=== PATIENT | female | born 1940 | race Caucasian/White ===

== ENCOUNTER → 2016-04-30 | Outpatient (REF) | payer MEDICARE ==
[2016-04-30 14:22] LABS: FERRITIN 139 NG/ML (8-252); PERCENT SATURATION 22.1 % (13.2-37.4); TOTAL IRON BINDING CAPACITY 353 UG/DL (250-450)
[2016-04-30 14:27] LABS: FOLATE > 24.0 NG/ML; VITAMIN B12 LEVEL 613 PG/ML
== END ==
LOC: M LAB REF 12:45
PROVIDERS: ATTEND Family Medicine
DX: D64.9 Anemia, unspecified (principal)

== ENCOUNTER → 2017-01-13 | Outpatient (REF) | payer OTHER, MEDICARE ==
[2017-01-13 13:52] LABS: RETIC HEMOGLOBIN EQUIVALENT 38.3 pg (24-36); RETICULOCYTE % 1.9 % (0.5-1.5)
[2017-01-13 13:53] LABS: FOLATE 20.7 NG/ML
== END ==
LOC: M LAB REF 13:20
PROVIDERS: ATTEND Family Medicine
DX: D64.9 Anemia, unspecified (principal)

== ENCOUNTER → 2017-01-14 | Outpatient (REF) | payer OTHER, MEDICARE ==
[2017-01-14 12:13] LABS: REASON FOR REVIEW COMPREHENSIVE REVIEW
== END ==
LOC: M LAB REF 11:45
PROVIDERS: ATTEND Family Medicine
DX: M79.651 Pain in right thigh (principal); D64.9 Anemia, unspecified

== ENCOUNTER → 2017-05-27 | Outpatient (REF) | payer OTHER, MEDICARE ==
[2017-05-27 19:38] LABS: RETIC HEMOGLOBIN EQUIVALENT 34.3 pg (24-36); RETICULOCYTE # 60.1 10^9/L (17-77); RETICULOCYTE % 1.9 % (0.5-1.5)
[2017-05-27 20:10] LABS: FERRITIN 44 NG/ML (8-252); IRON (FE) 68 UG/DL (50-170); PERCENT SATURATION 18.1 % (13.2-45.0); TOTAL IRON BINDING CAPACITY 376 UG/DL (250-450)
== END ==
LOC: M LAB REF 17:32
DX: D64.9 Anemia, unspecified (principal)
CPT/HCPCS: 83550

== ENCOUNTER 2018-01-14 08:55 | Day surgery (SDC) | payer OTHER ==
[2018-01-14] MEDS: NS 1,000 ML IV (09:42)
[2018-01-14] MEDS ORDERED: LIDOCAINE 2% INJ 100 MG/5 ML SDV (FOR ANES.) As Ordered (10:28)
[2018-01-14] MEDS ORDERED: fentaNYL 100 MCG/2 ML INJECTION (J3010) As Ordered (10:28)
[2018-01-14] MEDS ORDERED: PROPOFOL 200 MG/20 ML VIAL As Ordered ×2 (10:28→10:30)
[2018-01-14 12:43] LABS: HEMATOCRIT 23.2 % (36.0-47.0); HEMOGLOBIN 7.6 g/dl (12.0-15.5); MEAN CORPUSCULAR HGB CONC 32.8 g/dl (32.0-36.5); MEAN CORPUSCULAR VOLUME 94.7 fl (80.0-96.0); PLATELET COUNT, AUTOMATED 226 10^3/uL (150-450); RED BLOOD COUNT 2.45 10^6/uL (4.00-5.40); RED CELL DISTRIBUTION WIDTH 12.5 % (11.5-14.5); WHITE BLOOD COUNT 4.8 10^3/uL (4.0-10.0)
[2018-01-14 12:56] LABS: ALBUMIN 3.3 GM/DL (3.2-5.2); ALBUMIN/GLOBULIN RATIO 1.22 (1.00-1.93); ALKALINE PHOSPHATASE 57 U/L (45-117); ALT/SGPT 22 U/L (12-78); ANION GAP 8 MEQ/L (8-16); AST/SGOT 28 U/L (7-37); BILIRUBIN,TOTAL 0.3 MG/DL (0.2-1.0); BLOOD UREA NITROGEN 15 MG/DL (7-18); CALCIUM LEVEL 8.8 MG/DL (8.8-10.2); CARBON DIOXIDE LEVEL 27 MEQ/L (21-32); CHLORIDE LEVEL 109 MEQ/L (98-107); CREATININE FOR GFR 1.07 MG/DL (0.55-1.30); GLOMERULAR FILTRATION RATE 52.8 (>39); GLUCOSE, FASTING 108 MG/DL (70-100); SODIUM LEVEL 144 MEQ/L (136-145)
[2018-01-16 10:30] LABS: CARCINOEMBRYONIC ANTIGEN < 0.5 NG/ML (<2.5)
== END 2018-01-14 12:14 | disposition home or self-care (01) ==
LOC: M OPP 12:14
DX: D50.9 Iron deficiency anemia, unspecified (principal); C18.9 Malignant neoplasm of colon, unspecified; K56.690 Other partial intestinal obstruction; D49.0 Neoplasm of unspecified behavior of digestive system; K64.0 First degree hemorrhoids; K57.30 Diverticulosis of large intestine without perforation or abscess without bleeding; I10 Essential (primary) hypertension; E78.5 Hyperlipidemia, unspecified; R01.1 Cardiac murmur, unspecified; E03.9 Hypothyroidism, unspecified; K59.00 Constipation, unspecified; M54.89 Other dorsalgia; Z85.828 Personal history of other malignant neoplasm of skin; Z78.0 Asymptomatic menopausal state; Z79.899 Other long term (current) drug therapy
CPT/HCPCS: 45380

== ENCOUNTER → 2018-01-20 | Outpatient (REF) | payer OTHER ==
[2018-01-21 10:02] LABS: IMMEDIATE SPIN CROSSMATCH 1 2
== END ==
LOC: M LAB REF 12:11
DX: D64.9 Anemia, unspecified (principal)
CPT/HCPCS: 86900

== ENCOUNTER 2018-01-21 07:13 | Outpatient (CLI) | payer OTHER ==
[2018-01-21] MEDS: FUROSEMIDE 20 MG/2 ML VIAL (J1940) IV (09:58)
== END 2018-01-21 13:00 | disposition home or self-care (01) ==
LOC: M INFU 07:13
DX: C18.9 Malignant neoplasm of colon, unspecified (principal)
CPT/HCPCS: 36430

== ENCOUNTER → 2018-02-04 | Outpatient (CLI) | payer OTHER ==
[~2018-02-04] MED LIST: GASTROGRAFIN SOLUTION 30ML (Q9963) As Ordered; ISOVUE-370 76% 100ML VIAL (Q9967) As Ordered
== END ==
LOC: M RAD 15:04
DX: R91.1 Solitary pulmonary nodule (principal); C18.6 Malignant neoplasm of descending colon
CPT/HCPCS: Q9963

== ENCOUNTER → 2018-05-22 | Outpatient (REF) | payer OTHER ==
[~2018-05-22] MED LIST changes: +CALC500T49 PO; +CENTCHW3 PO; +CLEAPOW10 PO; +CYCL5TAB PO; +DRAM50TA7 PO; +FISH7.5C PO; -GASTROGRAFIN SOLUTION 30ML (Q9963) As Ordered; +GLUC1CAP10 PO; +IRON325T7 PO; -ISOVUE-370 76% 100ML VIAL (Q9967) As Ordered; +LEVO112T2 PO; +LOSA50TA88 PO; +OXYB5TAB10 PO; +SIMV20TA2 PO; +STOO100C PO; +VITA2000 PO; +drenamin PO; +fish oil PO; +multizyme PO
== END ==
LOC: M LAB REF 11:56
PROVIDERS: ATTEND Family Medicine
DX: N18.3 Chronic kidney disease, stage 3 (moderate) (principal); D64.9 Anemia, unspecified

== ENCOUNTER → 2018-05-26 | Outpatient (REF) | payer OTHER ==
[2018-05-26 13:29] LABS: IRON (FE) 80 UG/DL (50-170); PERCENT SATURATION 24.8 % (13.2-45.0); TOTAL IRON BINDING CAPACITY 323 UG/DL (250-450)
[2018-05-26 13:36] LABS: FOLATE > 24.0 NG/ML
[2018-05-26 14:55] LABS: VITAMIN B12 LEVEL 712 PG/ML
== END ==
LOC: M LAB REF 12:33
PROVIDERS: ATTEND Family Medicine
DX: D64.9 Anemia, unspecified (principal)

== ENCOUNTER → 2018-07-08 | Outpatient (CLI) | payer MEDICARE ==
--- NOTE | 2018-07-08 16:28 | REP ---
CT chest without contrast: History: Pulmonary nodule. Comparison chest CT study February 04, 2018. The patient gives a history of colon carcinoma. CT findings: There is a right lower lobe nodule on axial page 67 of 106 in series 201 of today's study. This measures 7 mm in greatest transverse dimension by 4 mm in short axis dimension on axial images. By my measurements on the prior study, this nodule measured 6.5 x 5.1 mm. It is not felt to have changed in the interval. There is a 3 mm nodule in the right upper lobe on page 22 of 106 of today's study which is visible in retrospect and unchanged from the prior study. No other significant pulmonary nodule is appreciated. There are scattered areas of minimal focal fibrosis. There is an area of fibrosis in the paravertebral region of the right lower lobe which is unchanged. Vascular calcification is noted. No adenopathy is seen. 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 No adrenal lesion is seen. Impression: No change in the size of the noncalcified nodule in the right lower lobe in the interval since the prior study February 04, 2018. No new pulmonary nodule is appreciated. 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 Electronically Signed by Kedar Miles MD 07/08/2018 04:31 P
== END ==
LOC: M RAD 14:20
PROVIDERS: ATTEND Surgery
DX: R91.1 Solitary pulmonary nodule (principal); J84.10 Pulmonary fibrosis, unspecified

== ENCOUNTER → 2018-12-30 | Outpatient (REF) | payer MEDICARE ==
[~2018-12-30] MED LIST changes: +FERR325T82 PO; -IRON325T7 PO; +MM S100C PO; -SIMV20TA2 PO; +SIMV20TA22 PO; -STOO100C PO
== END ==
LOC: M LAB REF 12:45
PROVIDERS: ATTEND Radiology Diagnostic Radiology
DX: R92.2 Inconclusive mammogram (principal)

== ENCOUNTER → 2019-01-06 | Outpatient (CLI) | payer MEDICARE ==
[~2019-01-06] MED LIST changes: +GASTROGRAFIN SOLUTION 30ML (Q9963) As Ordered ONE; +ISOVUE-370 76% 100ML VIAL (Q9967) As Ordered ONE; +SIMV20TA2 PO; -SIMV20TA22 PO
--- NOTE | 2019-01-07 05:01 | REP ---
Clinical: Anemia. Colon cancer. Technique: Axial contrast enhanced images from the thoracic inlet to the upper abdomen with coronal and sagittal re-formations using 100 ml Isovue 370 intravenous contrast material. Comparison: 07/08/2018, 02/04/2018. Findings: The 7 mm noncalcified pulmonary nodule in the periphery of the right lower lobe (image 58) and 2 mm noncalcified nodule in the periphery of the right upper lobe (image 21) both remain stable. No further nodule, consolidation or mass lesion is appreciated. Chronic-appearing interstitial changes and minimal posterior basilar dependent changes noted. No effusion. No pneumothorax. Tracheobronchial tree is patent. No adenopathy. Incidental aberrant right subclavian artery noted. Atherosclerotic changes to the thoracic aorta and coronary arteries are again identified. Surrounding musculoskeletal structures without focal osseous abnormality. Limited upper abdomen demonstrates normal bilateral adrenal glands. Impression: 1. Stable noncalcified pulmonary nodules unchanged compared through 02/04/2018. 2. No new acute mediastinal or pleuroparenchymal process. Electronically Signed by Valente Crawford MD 01/07/2019 04:53 A
--- NOTE | 2019-01-07 05:08 | REP ---
Clinical: Anemia. History: Cancer. Technique: Axial contrast enhanced images from the lung bases to the pubic symphysis using oral (per protocol) and 100 ml Isovue 370 intravenous contrast material with coronal and sagittal re-formations. Comparison: 02/04/2018. Findings: Lung bases demonstrate mild chronic interstitial changes along with minimal posterior basilar dependent changes and stable nodule in the periphery of the right lower lobe. Liver, spleen, pancreas, gallbladder, bilateral adrenal glands and kidneys are normal. The enteric system is without obstruction or acute inflammatory process. Postsurgical changes involving the descending colon noted. Few scattered sigmoid diverticula identified without acute diverticulitis. Mild/moderate fecal stasis suggested. Pelvis demonstrates normal bladder. The uterus demonstrates central hypodense area with calcification suggesting myomatous changes. No pelvic fluid or ascites. No significant adenopathy. Atherosclerotic changes to the aorta and vasculature without aneurysm or dissection. Musculoskeletal structures demonstrate age-related changes without focal osseous abnormality. Impression: 1. No obvious acute abdominopelvic pathology appreciated. 2. Mild/moderate fecal stasis and constipation suggested. 3. Few scattered sigmoid diverticula. 4. No ascites, adenopathy, or focal inflammatory changes. Electronically Signed by Valente Crawford MD 01/07/2019 04:59 A
== END ==
LOC: M RAD 15:12
PROVIDERS: ATTEND Surgery
DX: D64.9 Anemia, unspecified (principal); Z85.038 Personal history of other malignant neoplasm of large intestine; K57.30 Diverticulosis of large intestine without perforation or abscess without bleeding; I70.0 Atherosclerosis of aorta
CPT/HCPCS: 71260; 74177; Q9963; Q9967

== ENCOUNTER → 2019-08-16 | Outpatient (REF) | payer MEDICARE ==
[~2019-08-16] MED LIST changes: -GASTROGRAFIN SOLUTION 30ML (Q9963) As Ordered ONE; -ISOVUE-370 76% 100ML VIAL (Q9967) As Ordered ONE; -SIMV20TA2 PO; +SIMV20TA22 PO
[2019-08-16 17:36] LABS: PERCENT SATURATION 37.6 % (13.2-45.0)
== END ==
LOC: M LAB REF 16:14
PROVIDERS: ATTEND Family Medicine
DX: D64.9 Anemia, unspecified (principal); N18.3 Chronic kidney disease, stage 3 (moderate)

== ENCOUNTER → 2019-09-24 | Outpatient (REF) | payer MEDICARE ==
[2019-09-24 18:06] LABS: C REACTIVE PROTEIN QUANTITATIV < 0.30 MG/DL (0.00-0.30); LDH LACTATE DEHYDROGENASE 167 U/L (84-246); RHEUMATOID FACTOR QUANT < 10.0 IU/ML (<15.0)
[2019-09-24 18:16] LABS: CORTISOL AM 10.5 UG/DL (4.3-22.4)
[2019-09-24 18:17] LABS: TESTOSTERONE 15 NG/DL (14-76); VITAMIN B12 LEVEL 857 PG/ML
[2019-09-24 18:18] LABS: FOLATE > 24.0 NG/ML
[2019-09-28 08:08] LABS: ANTINUCLEAR ANTIBODIES DIRECT Negative (Negative); ERYTHROPOIETIN 15.3 mIU/mL (2.6-18.5); HAPTOGLOBIN 153 mg/dL (42-346)
== END ==
LOC: M LAB REF 17:34
PROVIDERS: ATTEND Family Medicine
DX: D64.9 Anemia, unspecified (principal); Z85.038 Personal history of other malignant neoplasm of large intestine

== ENCOUNTER → 2019-11-17 | Outpatient (CLI) | payer MEDICARE ==
[~2019-11-17] MED LIST changes: +GASTROGRAFIN SOLUTION 30ML (Q9963) As Ordered ONE; +ISOVUE-370 76% 100ML VIAL As Ordered ONE
== END ==
LOC: M RAD 16:30
PROVIDERS: ATTEND Internal Medicine Hematology & Oncology
DX: R91.8 Other nonspecific abnormal finding of lung field (principal); D64.9 Anemia, unspecified; Z85.038 Personal history of other malignant neoplasm of large intestine
CPT/HCPCS: 71260; 74177; Q9963; Q9967

== ENCOUNTER → 2020-06-05 | Outpatient (CLI) | payer MEDICARE ==
[~2020-06-05] MED LIST changes: -GASTROGRAFIN SOLUTION 30ML (Q9963) As Ordered ONE; -ISOVUE-370 76% 100ML VIAL As Ordered ONE
--- NOTE | 2020-06-05 13:25 | REP ---
INDICATION: SCIATICA. COMPARISON: None. TECHNIQUE: Five views lumbosacral spine. FINDINGS: There is no compression fracture or malalignment. There is no spondylolysis or spondylolisthesis. There is very mild diffuse spurring. There is mild disc space narrowing at all levels. There is sclerosis and spurring at the posterior facet joints of L4-5 and L5-S1. Posterior elements are intact. IMPRESSION: Mild diffuse degenerative changes. <Electronically signed by Roberto Whitmore > 06/05/20 [id number]
== END ==
LOC: M ADAMS 09:42
PROVIDERS: ATTEND Nurse Practitioner Family
DX: M25.78 Osteophyte, vertebrae (principal); M54.31 Sciatica, right side

== ENCOUNTER → 2020-08-09 | Outpatient (CLI) | payer MEDICARE ==
--- NOTE | 2020-08-09 09:46 | REP ---
INDICATION: PAIN. COMPARISON: None. TECHNIQUE: AP and frogleg views. FINDINGS: AP and frogleg views of the right hip demonstrate smooth rounded femoral head and intact hip joint space. Periarticular soft tissues are unremarkable. No fracture is seen. There is subcortical cyst formation in the superior acetabular margin and minimal spurring is present. The right hemipelvis appears intact. Visualized bowel gas pattern is normal. IMPRESSION: Minimal osteoarthritic spurring. No acute abnormality. <Electronically signed by Matt Miles > 08/09/20 0921
== END ==
LOC: M WUC 08:40
PROVIDERS: ATTEND Family Medicine
DX: M16.11 Unilateral primary osteoarthritis, right hip (principal)

== ENCOUNTER 2020-08-29 08:31 | Emergency (ER) | payer MEDICARE ==
[~2020-08-29] VITALS: Ht 167.6 cm; Wt 74.4 kg
[2020-08-29] MEDS ORDERED: ROPI0.253 (08:44)
[2020-08-29] MEDS ORDERED: LEVO100T5 (08:44)
[2020-08-29] MEDS ORDERED: SIMV20TA22 (08:44)
--- NOTE | 2020-08-29 09:18 | REP ---
INDICATION: fall, head injury. COMPARISON: Comparison brain MRI study images are from July 18, 2008.. TECHNIQUE: Helical scanning is acquired. 5 mm axial images were reformatted. Coronal MPR images were generated. FINDINGS: Bone window settings demonstrate an intact bony calvarium. There is no evidence of skull fracture or incidental bony calvarial lesion. The visualized paranasal sinuses appear clear. No intraorbital abnormality is seen. On soft tissue window setting images; the lateral, third, and fourth ventricles are normal in size and position. Whitmore-white differentiation pattern is normal above and below the tentorium. There are is no evidence of intracranial hemorrhage. No mass, edema, infarction, or midline shift is seen. No extra-axial fluid collection is appreciated. There is minimal vascular calcification at the skull base. There is a small stable subarachnoid cyst adjacent to the left cerebellar hemisphere posteriorly unchanged from the 2009 prior study. Minimal small vessel changes are visible. IMPRESSION: No acute intracranial abnormality.. <Electronically signed by Matt Miles > 08/29/20 0914
--- NOTE | 2020-08-29 09:21 | REP ---
INDICATION: fall/bruising/injury. COMPARISON: NONE. TECHNIQUE: Helical scanning is acquired and 2 mm axial images re-formatted. Coronal MPR images are generated and reviewed. FINDINGS: Maxillary sinuses are clear. Ethmoid and sphenoid aeration is normal. The frontal sinuses are clear. The right frontal sinus is hypoplastic. Bony nasal septum is essentially in the midline. Ostiomeatal complexes are widely patent. There is minimal mucosal thickening in the left side of the small sphenoid sinus air cell. Bony sinus margins are intact. No intraorbital abnormality is seen. The visualized intracranial soft tissues are unremarkable except for mild generalized volume loss. The deep facial soft tissues are unremarkable and symmetric. Nasal bone and inferior maxillary spine are intact. No significant soft tissue hematoma is seen. IMPRESSION: Minimal mucosal thickening in the left side of the sphenoid sinus. Otherwise negative. No facial fracture is seen. <Electronically signed by Matt Miles > 08/29/20 [id number]
[2020-08-29 09:54] VITALS: BP 150/86
== END 2020-08-29 09:55 | disposition home or self-care (01) ==
LOC: M ED 08:31
DX: S05.10XA Contusion of eyeball and orbital tissues, unspecified eye, initial encounter (principal); S80.01XA Contusion of right knee, initial encounter; S00.03XA Contusion of scalp, initial encounter; W19.XXXA Unspecified fall, initial encounter; Y92.830 Public park as the place of occurrence of the external cause; Y93.9 Activity, unspecified; Y99.9 Unspecified external cause status; I10 Essential (primary) hypertension; E78.5 Hyperlipidemia, unspecified; E03.9 Hypothyroidism, unspecified; F17.200 Nicotine dependence, unspecified, uncomplicated; Z79.899 Other long term (current) drug therapy

== ENCOUNTER 2020-10-01 12:13 | Emergency (ER) | payer MEDICARE ==
[~2020-10-01] VITALS: Ht 167.6 cm; Wt 73.2 kg
[~2020-10-01 12:13] MED LIST changes: +LEVO100T5; +ROPI0.253; +SIMV20TA22
[2020-10-01] MEDS ORDERED: TIZA2TA (12:33)
[2020-10-01] MEDS ORDERED: AMLO1TAB24 (12:33)
[2020-10-01 13:32] LABS: BASO # 0.1 10^3/uL (0.0-0.2); BASO % 0.7 % (0.0-1.0); EOS # 0.5 10^3/uL (0.0-0.5); HEMATOCRIT 32.4 % (36.0-47.0); HEMOGLOBIN 10.9 g/dl (12.0-15.5); LYMPH # 1.5 10^3/uL (1.5-5.0); LYMPH % 19.4 % (24.0-44.0); MEAN CORPUSCULAR HEMOGLOBIN 32.2 pg (27.0-33.0); MEAN CORPUSCULAR HGB CONC 33.6 g/dl (32.0-36.5); MEAN CORPUSCULAR VOLUME 95.9 fl (80.0-96.0); MONO # 0.6 10^3/uL (0.0-0.8); MONO % 8.4 % (2.0-8.0); NEUTROPHILS # 4.9 10^3/uL (1.5-8.5); NEUTROPHILS % 65.2 % (36.0-66.0); PLATELET COUNT, AUTOMATED 319 10^3/uL (150-450); RED BLOOD COUNT 3.38 10^6/uL (4.00-5.40); WHITE BLOOD COUNT 7.5 10^3/uL (4.0-10.0)
[2020-10-01 14:00] LABS: ERYTHROCYTE SEDIMENTATION RATE 67 mm/hr (0-30)
[2020-10-01 14:07] LABS: ALBUMIN 4.1 GM/DL (3.2-5.2); BILIRUBIN,DIRECT 0.2 MG/DL (0.0-0.2); BILIRUBIN,TOTAL 0.6 MG/DL (0.2-1.0); C REACTIVE PROTEIN QUANTITATIV 0.33 MG/DL (0.00-0.30); CALCIUM LEVEL 9.7 MG/DL (8.8-10.2); CREATININE FOR GFR 1.11 MG/DL (0.55-1.30); GLOMERULAR FILTRATION RATE 50.2 (>32); POTASSIUM SERUM 4.3 MEQ/L (3.5-5.1); TOTAL PROTEIN 7.9 GM/DL (6.4-8.2)
--- NOTE | 2020-10-01 14:07 | REP ---
INDICATION: TRAUMA/SWELLING. COMPARISON: None. FINDINGS: The joint spaces are symmetric and relatively well maintained. There is no evidence of acute fracture or destructive osseous lesion. IMPRESSION: No acute abnormality <Electronically signed by Anurag Johnson > 10/01/20 [id number]
--- NOTE | 2020-10-01 14:07 | REP ---
INDICATION: TRAUMA/SWELLING. COMPARISON: None. FINDINGS: No acute fracture or destructive osseous lesion. The mortise is intact. There is a plantar calcaneal heel spur IMPRESSION: No acute abnormality <Electronically signed by Anurag Johnson > 10/01/20 [id number]
--- NOTE | 2020-10-01 14:33 | REP ---
INDICATION: R/O DVT. COMPARISON: None. TECHNIQUE: Multiple ultrasonographic images of the deep venous structures of the right lower extremity were obtained from the inguinal ligament to the ankle. Venous compression techniques, color doppler imaging, and augmentation techniques were also obtained where appropriate. As per the ACR guidelines the anterior tibial vein can not be effectively evaluated. Only compression techniques in the calf on the peroneal and posterior tibial veins was attempted/performed. FINDINGS: There is no abnormal echogenic material seen within any of the visualized deep venous structures that would suggest acute thrombosis. Coaptation is unremarkable throughout. Doppler interrogation shows an expected response to respiratory variability and augmentation in the thigh. Compression techniques in the calf showed no abnormality. The color flow images show what appears to be a normal vascular pattern throughout the thigh. IMPRESSION: There is no ultrasonographic evidence of deep venous thrombosis involving any of the visualized deep venous structures of the right lower extremity as described above. <Electronically signed by Anurag Johnson > 10/01/20 0864
[2020-10-01] MEDS ORDERED: PRED20TA PO (15:20)
[2020-10-01] MEDS ORDERED: predniSONE 20 MG TAB PO ONE (15:20)
[2020-10-01 15:33] VITALS: BP 156/78
== END 2020-10-01 15:43 | disposition home or self-care (01) ==
LOC: M ED 12:13
DX: R22.41 Localized swelling, mass and lump, right lower limb (principal); R60.9 Edema, unspecified; I10 Essential (primary) hypertension; E03.9 Hypothyroidism, unspecified; E78.5 Hyperlipidemia, unspecified; Z79.899 Other long term (current) drug therapy
CPT/HCPCS: 36415; 73610; 73630; 80048; 80076; 83605; 85025; 85652; 86140; 87040; 93971; 99283; J7512

== ENCOUNTER → 2020-11-01 | Outpatient (REF) | payer MEDICARE ==
[~2020-11-01] MED LIST changes: +AMLO1TAB24; +PRED20TA PO; +TIZA2TA
== END ==
LOC: M LAB REF 12:28
PROVIDERS: ATTEND Family Medicine
DX: M10.072 Idiopathic gout, left ankle and foot (principal)

== ENCOUNTER → 2021-01-16 | Outpatient (REF) | payer MEDICARE ==
[2021-01-16 20:12] LABS: FERRITIN 541 NG/ML (8-252); IRON (FE) 99 UG/DL (50-170); PERCENT SATURATION 35.2 % (13.2-45.0); TOTAL IRON BINDING CAPACITY 281 UG/DL (250-450)
[2021-01-17 10:01] LABS: VITAMIN B12 LEVEL 567 PG/ML
[2021-01-17 10:02] LABS: FOLATE > 24.0 NG/ML
== END ==
LOC: M LAB REF 17:28
PROVIDERS: ATTEND Family Medicine
DX: D64.9 Anemia, unspecified (principal)

== ENCOUNTER → 2021-02-01 | Outpatient (CLI) | payer MEDICARE ==
[~2021-02-01] MED LIST changes: -AMLO1TAB24; +AMLO1TAB24 PO; +CALCCHW4 PO; +CENT1TAB PO; +CIDA500T2 PO; +COLA100C5 PO; +D31000TA2 PO; +KP F1200 PO; -LEVO100T5; +LEVO100T5 PO; +MAGN400T2 PO; -ROPI0.253; +ROPI0.253 PO; -SIMV20TA22
--- NOTE | 2021-02-01 16:33 | REP ---
INDICATION: SWELLING, LT LEG COMPARISON: None. TECHNIQUE: Real time compression and duplex Doppler interrogation of the left lower extremity deep venous system is performed, including the right common femoral vein.Compression of the left peroneal and posterior tibial veins is performed. FINDINGS: The left common femoral, superficial femoral and popliteal veins are fully compressible with transducer pressure and demonstrate normal spontaneous and phasic flow, without evidence of deep venous thrombosis.The right common femoral vein demonstrates no thrombus.The left peroneal and posterior tibial veins are not visualized due to edema. Complex Porter's cyst in the popliteal fossa measures 2.3 x 4.7 x 1.2 cm. IMPRESSION: No evidence of deep venous thrombosis of the left lower extremity femoral popliteal venous system. Complex Porter's cyst in the popliteal fossa measures 2.3 x 4.7 x 1.2 cm. <Electronically signed by Roberto Whitmore > 02/01/21 [id number]
--- NOTE | 2021-02-01 16:41 | REP ---
INDICATION: COLON CA COMPARISON: Multiple the latest 11/17/2019 TECHNIQUE: Standard helical technique without intravenous contrast. This causes exam limitations. FINDINGS: There is no significant change in appearance of the mediastinum or pulmonary shamika other than technique. There are no pleural or pericardial effusions. The imaged osseous structures appear stable. Evaluation of the lung carmen show multiple stable pulmonary nodules. No new abnormal nodules, masses, or opacities have developed. IMPRESSION: Stable CT findings. There is no evidence of acute disease. <Electronically signed by Anurag Johnson > 02/01/21 [id number]
--- NOTE | 2021-02-01 16:46 | REP ---
INDICATION: COLON CA. COMPARISON: Multiple the latest 11/17/2019 TECHNIQUE: Standard helical technique without contrast FINDINGS: The liver, gallbladder, spleen, pancreas, adrenal glands, and kidneys are unchanged. The abdominal aorta and para-aortic regions are unchanged. There is no significant change in appearance of the bowel loops or the mesenteries. There is no evidence of a mass or adenopathy. There is no free fluid or free air. Bone window technique throughout the examination shows no change in the osseous structures. IMPRESSION: There is no evidence of acute disease or significant change compared to the prior exam other than technique. <Electronically signed by Anurag Johnson > 02/01/21 [id number]
== END ==
LOC: M RAD 15:53
PROVIDERS: ATTEND Specialist
DX: R22.42 Localized swelling, mass and lump, left lower limb (principal); Z85.038 Personal history of other malignant neoplasm of large intestine

== ENCOUNTER → 2021-02-02 | Outpatient (REF) | payer MEDICARE ==
[2021-02-02 13:31] LABS: BASO # 0.1 10^3/uL (0.0-0.2); BASO % 0.7 % (0.0-1.0); EOS # 0.1 10^3/uL (0.0-0.5); EOS % 1.9 % (0.0-3.0); HEMOGLOBIN 10.8 g/dl (12.0-15.5); LYMPH % 29.1 % (24.0-44.0); MEAN CORPUSCULAR HGB CONC 32.7 g/dl (32.0-36.5); MEAN CORPUSCULAR VOLUME 97.9 fl (80.0-96.0); MONO # 0.6 10^3/uL (0.0-0.8); MONO % 8.7 % (2.0-8.0); NEUTROPHILS # 4.2 10^3/uL (1.5-8.5); NEUTROPHILS % 59.3 % (36.0-66.0); PLATELET COUNT, AUTOMATED 283 10^3/uL (150-450); RED BLOOD COUNT 3.37 10^6/uL (4.00-5.40)
[2021-02-02 13:54] LABS: ALBUMIN 3.6 GM/DL (3.2-5.2); ALT/SGPT 33 U/L (12-78); BILIRUBIN,TOTAL 0.6 MG/DL (0.2-1.0); BLOOD UREA NITROGEN 23 MG/DL (7-18); CALCIUM LEVEL 9.3 MG/DL (8.8-10.2); CARBON DIOXIDE LEVEL 31 MEQ/L (21-32); CHLORIDE LEVEL 106 MEQ/L (98-107); CREATININE FOR GFR 1.27 MG/DL (0.55-1.30); FERRITIN 527 NG/ML (8-252); FOLATE > 24.0 NG/ML; GLUCOSE, FASTING 132 MG/DL (70-100); IRON (FE) 105 UG/DL (50-170); PERCENT SATURATION 37.4 % (13.2-45.0); POTASSIUM SERUM 4.5 MEQ/L (3.5-5.1); SODIUM LEVEL 141 MEQ/L (136-145); TOTAL IRON BINDING CAPACITY 281 UG/DL (250-450); TOTAL PROTEIN 7.4 GM/DL (6.4-8.2); VITAMIN B12 LEVEL 1191 PG/ML
[2021-02-05 10:22] LABS: ALBUMIN 4.58 GM/DL (3.29-5.55); ALBUMIN % 61.9 % (55.8-66.1); ALPHA-1-GLOBULIN % 4.1 % (2.9-4.9); ALPHA-2-GLOBULINS 0.72 GM/DL (0.42-0.99); ALPHA-2-GLOBULINS % 9.7 % (7.1-11.8); BETA-1-GLOBULINS 0.37 GM/DL (0.28-0.60); BETA-2-GLOBULINS 0.33 GM/DL (0.19-0.55); BETA-2-GLOBULINS % 4.5 % (3.2-6.5); GAMMA GLOBULIN % 14.8 % (11.1-18.8)
== END ==
LOC: M LABDRWAD 13:10
PROVIDERS: ATTEND Specialist
DX: C18.9 Malignant neoplasm of colon, unspecified (principal); D47.2 Monoclonal gammopathy; D50.9 Iron deficiency anemia, unspecified; D51.9 Vitamin B12 deficiency anemia, unspecified

== ENCOUNTER → 2021-02-06 | Outpatient (CLI) | payer MEDICARE ==
[~2021-02-06] MED LIST changes: +GASTROGRAFIN SOLUTION 30ML (Q9963) As Ordered ONE
== END ==
LOC: M RAD 15:26
PROVIDERS: ATTEND Specialist
DX: C18.9 Malignant neoplasm of colon, unspecified (principal); Z53.9 Procedure and treatment not carried out, unspecified reason

== ENCOUNTER → 2021-03-21 | Outpatient (CLI) | payer MEDICARE ==
[~2021-03-21] MED LIST changes: -GASTROGRAFIN SOLUTION 30ML (Q9963) As Ordered ONE; +ISOVUE-300 61% 50ML VIAL As Ordered ONE; +LIDOCAINE 1% MDV 20ML VIAL As Ordered ONE; +methylPREDNISolone SUSP 40MG/ML 1ML VIAL (DEPO MEDROL) As Ordered ONE
--- NOTE | 2021-03-21 19:46 | REP ---
INDICATION: UNILATERAL PRIMARY OSTEOARTHRITIS, LEFT HIP. COMPARISON: None. TECHNIQUE: The procedure was performed under the direct supervision of Dr. Whitmore. The benefits and risks including but not limited to pain infection and bleeding and anaphylaxis were explained to the patient and informed consent was obtained. The left femoral neck was localized using fluoroscopic guidance. The skin was prepped and draped in a sterile fashion. 1% lidocaine was used as a local anesthetic. Using fluoroscopic guidance, and last image hold technology, a 22-gauge spinal needle was inserted and advanced to the femoral neck. 0.5 ml of Isovue-300 was injected to verify placement. Seven ml of a solution containing 5 ml of 1% Xylocaine and 2 mL of Depo-Medrol 40 mg was injected. The needle was then removed. The patient tolerated the procedure well and there were no immediate complications. Less than 6 seconds of fluoro time was utilized for this procedure. FINDINGS: None IMPRESSION: Fluoro guidance for left hip injection. <Electronically signed by Victoriano Hernandez > 03/21/21 1438 <Electronically signed by Roberto Whitmore > 03/21/21 [id number]
== END ==
LOC: M RADPRO 12:40
PROVIDERS: ATTEND Physician Assistant
DX: M16.12 Unilateral primary osteoarthritis, left hip (principal)
CPT/HCPCS: 20610; 77002; J1030; Q9967

== ENCOUNTER → 2021-08-15 | Outpatient (CLI) | payer MEDICARE ==
[~2021-08-15] MED LIST changes: -D31000TA2 PO; -ISOVUE-300 61% 50ML VIAL As Ordered ONE; -LIDOCAINE 1% MDV 20ML VIAL As Ordered ONE; +LOSA50TA28 PO; -LOSA50TA88 PO; +VITA100093 PO; -methylPREDNISolone SUSP 40MG/ML 1ML VIAL (DEPO MEDROL) As Ordered ONE
== END ==
LOC: M WHC 09:31
PROVIDERS: ATTEND Family Medicine
DX: Z12.31 Encounter for screening mammogram for malignant neoplasm of breast (principal); Z85.038 Personal history of other malignant neoplasm of large intestine

== ENCOUNTER → 2021-12-28 | Outpatient (CLI) | payer MEDICARE ==
[~2021-12-28] MED LIST changes: +FISH10005 PO; -FISH7.5C PO
== END ==
LOC: M WUC 09:42
PROVIDERS: ATTEND Student in an Organized Health Care Education/Training Program
DX: M25.511 Pain in right shoulder (principal); M19.011 Primary osteoarthritis, right shoulder

== ENCOUNTER → 2022-03-06 | Outpatient (CLI) | payer MEDICARE ==
[~2022-03-06] MED LIST changes: +ELIQ5TAB PO; +GASTROGRAFIN SOLUTION 30ML As Ordered ONE; +ISOVUE-370 76% 100ML VIAL As Ordered ONE
== END ==
LOC: M RAD 14:17
PROVIDERS: ATTEND Nurse Practitioner
DX: C18.7 Malignant neoplasm of sigmoid colon (principal); R91.8 Other nonspecific abnormal finding of lung field; I70.0 Atherosclerosis of aorta; I25.10 Atherosclerotic heart disease of native coronary artery without angina pectoris; Z90.49 Acquired absence of other specified parts of digestive tract; Z98.0 Intestinal bypass and anastomosis status
CPT/HCPCS: 74177; Q9963; Q9967

== ENCOUNTER 2022-05-22 18:43 | Emergency (ER) | payer MEDICARE, OTHER ==
[~2022-05-22] VITALS: Ht 167.6 cm; Wt 96.0 kg
[~2022-05-22 18:43] MED LIST changes: -GASTROGRAFIN SOLUTION 30ML As Ordered ONE; -ISOVUE-370 76% 100ML VIAL As Ordered ONE
[2022-05-22 18:45] VITALS: BP 171/74
[2022-05-22] MEDS ORDERED: LOSA50TA28 PO (18:56)
[2022-05-22] MEDS ORDERED: LEVO112T2 (18:56)
[2022-05-22] MEDS ORDERED: LIDOCAINE W/EPINEPHRINE 1% 20ML VIAL SC ONE (22:50)
== END 2022-05-22 23:56 | disposition home or self-care (01) ==
LOC: M ED 18:43
DX: L76.21 Postprocedural hemorrhage of skin and subcutaneous tissue following a dermatologic procedure (principal); C18.9 Malignant neoplasm of colon, unspecified; I10 Essential (primary) hypertension; Z79.01 Long term (current) use of anticoagulants; Z79.02 Long term (current) use of antithrombotics/antiplatelets; Z79.811 Long term (current) use of aromatase inhibitors; Z79.899 Other long term (current) drug therapy

== ENCOUNTER 2022-05-26 06:47 | Emergency (ER) | payer MEDICARE, OTHER ==
[~2022-05-26] VITALS: Ht 15.2 cm; Wt 68.9 kg
[~2022-05-26 06:47] MED LIST changes: +LEVO112T2
[2022-05-26] MEDS ORDERED: LIDOCAINE W/EPINEPHRINE 1% 20ML VIAL SC ONE (10:30)
[2022-05-26] MEDS ORDERED: SILVER NITRATE APPLICATOR (1 = QTY 10) TOP ONE ×2 (10:30→10:35)
[2022-05-26 12:01] VITALS: BP 136/62
== END 2022-05-26 12:16 | disposition home or self-care (01) ==
LOC: M ED 06:47
DX: L76.22 Postprocedural hemorrhage of skin and subcutaneous tissue following other procedure (principal); I10 Essential (primary) hypertension; D64.9 Anemia, unspecified; Z86.79 Personal history of other diseases of the circulatory system; Z79.01 Long term (current) use of anticoagulants; Z79.811 Long term (current) use of aromatase inhibitors; Z79.899 Other long term (current) drug therapy

== ENCOUNTER 2022-08-07 07:01 | Emergency (ER) | payer MEDICARE, OTHER ==
[~2022-08-07] VITALS: Ht 167.6 cm; Wt 67.7 kg
[2022-08-07] MEDS ORDERED: AMLO1TAB24 (07:15)
[2022-08-07 07:39] LABS: BASO % 0.5 % (0.0-1.0); EOS # 0.1 10^3/uL (0.0-0.5); HEMATOCRIT 32.8 % (36.0-47.0); HEMOGLOBIN 10.7 g/dl (12.0-15.5); LYMPH % 15.2 % (24.0-44.0); MEAN CORPUSCULAR HEMOGLOBIN 31.1 pg (27.0-33.0); MEAN CORPUSCULAR HGB CONC 32.6 g/dl (32.0-36.5); MEAN CORPUSCULAR VOLUME 95.3 fl (80.0-96.0); MONO # 0.4 10^3/uL (0.0-0.8); MONO % 5.7 % (2.0-8.0); NEUTROPHILS % 76.3 % (36.0-66.0); PLATELET COUNT, AUTOMATED 184 10^3/uL (150-450); RED BLOOD COUNT 3.44 10^6/uL (4.00-5.40); WHITE BLOOD COUNT 6.5 10^3/uL (4.0-10.0)
[2022-08-07 08:05] LABS: CK-MB VALUE MASS < 1.0 NG/ML (<3.6)
[2022-08-07 08:06] LABS: BLOOD UREA NITROGEN 21 MG/DL (9-23); CALCIUM LEVEL 9.5 MG/DL (8.3-10.6); CARBON DIOXIDE LEVEL 24 MMOL/L (20-31); CHLORIDE LEVEL 107 MMOL/L (98-107); CREATININE FOR GFR 0.98 MG/DL (0.55-1.30); GLOMERULAR FILTRATION RATE 57.7 (>32); GLUCOSE, FASTING 133 MG/DL (74-106); MAGNESIUM LEVEL 1.8 MG/DL (1.8-2.4); POTASSIUM SERUM 3.8 MMOL/L (3.5-5.1); SODIUM LEVEL 141 MMOL/L (136-145)
[2022-08-07 08:10] LABS: CPK CREATINE PHOSPHOKINASE 81 U/L (34-145); MB/CK RELATIVE INDEX 1.23 (< OR =4)
[2022-08-07 08:59] LABS: MB/CK RELATIVE INDEX 1.28 (< OR =4)
[2022-08-07] MEDS ORDERED: MECL1TAB31 PO (10:28)
[2022-08-07 10:31] VITALS: BP 123/60
== END 2022-08-07 10:50 | disposition home or self-care (01) ==
LOC: M ED 07:01 → EDBD 07:01 → M ED 10:50
DX: R42 Dizziness and giddiness (principal); I48.91 Unspecified atrial fibrillation; I10 Essential (primary) hypertension; G25.81 Restless legs syndrome; E03.9 Hypothyroidism, unspecified; Z79.01 Long term (current) use of anticoagulants; Z79.899 Other long term (current) drug therapy

== ENCOUNTER → 2022-11-22 | Outpatient (CLI) | payer OTHER ==
[~2022-11-22] MED LIST changes: +AMLO1TAB24; +MECL1TAB31 PO; -ROPI0.253 PO; +ROPI5TAB19 PO
== END ==
LOC: M WHC 09:55
PROVIDERS: ATTEND Family Medicine
DX: Z12.31 Encounter for screening mammogram for malignant neoplasm of breast (principal); R91.8 Other nonspecific abnormal finding of lung field

== ENCOUNTER → 2022-12-09 | Outpatient (CLI) | payer OTHER | LOC: M WUC 10:02 | PROVIDERS: ATTEND Student in an Organized Health Care Education/Training Program | DX: N39.498 Other specified urinary incontinence (principal); R07.9 Chest pain, unspecified; I51.7 Cardiomegaly; Z95.2 Presence of prosthetic heart valve; I70.0 Atherosclerosis of aorta; M48.14 Ankylosing hyperostosis [Forestier], thoracic region ==

== ENCOUNTER → 2023-01-27 | Outpatient (CLI) | payer OTHER ==
[~2023-01-27] MED LIST changes: +MECL-209 PO; -MECL1TAB31 PO; -OXYB5TAB10 PO; +OXYB5TAB11 PO
[2023-01-27 13:57] LABS: HEMATOCRIT 31.2 % (36.0-47.0); HEMOGLOBIN 10.2 g/dl (12.0-15.5); MEAN CORPUSCULAR HGB CONC 32.7 g/dl (32.0-36.5); PLATELET COUNT, AUTOMATED 359 10^3/uL (150-450); RED BLOOD COUNT 3.09 10^6/uL (4.00-5.40); WHITE BLOOD COUNT 11.6 10^3/uL (4.0-10.0)
[2023-01-27 14:11] LABS: ALBUMIN 3.1 G/DL (3.2-5.2); ALKALINE PHOSPHATASE 92 U/L (46-116); ALT/SGPT 22 U/L (7.0-40); AST/SGOT 22 U/L (<34); BILIRUBIN,TOTAL 0.8 MG/DL (0.3-1.2); BLOOD UREA NITROGEN 23 MG/DL (9-23); CALCIUM LEVEL 9.5 MG/DL (8.3-10.6); CARBON DIOXIDE LEVEL 26 MMOL/L (20-31); CHLORIDE LEVEL 102 MMOL/L (98-107); CREATININE FOR GFR 0.92 MG/DL (0.55-1.30); GLOMERULAR FILTRATION RATE > 60.0 (>32); GLUCOSE, FASTING 125 MG/DL (74-106); POTASSIUM SERUM 4.8 MMOL/L (3.5-5.1); SODIUM LEVEL 136 MMOL/L (136-145); TOTAL PROTEIN 6.5 G/DL (5.7-8.2)
== END ==
LOC: M WUC 10:27
PROVIDERS: ATTEND Student in an Organized Health Care Education/Training Program
DX: R60.0 Localized edema (principal)

== ENCOUNTER → 2023-01-28 | Outpatient (REF) | payer OTHER | LOC: M LAB REF 13:11 | PROVIDERS: ATTEND Physician Assistant Medical | DX: I48.91 Unspecified atrial fibrillation (principal); R60.0 Localized edema; E03.9 Hypothyroidism, unspecified ==

== ENCOUNTER → 2023-02-06 | Outpatient (REF) | payer OTHER ==
[2023-02-06 21:15] LABS: CALCIUM LEVEL 9.9 MG/DL (8.3-10.6); GLOMERULAR FILTRATION RATE 56.4 (>32); POTASSIUM SERUM 4.9 MMOL/L (3.5-5.1)
== END ==
LOC: M LAB REF 20:30
PROVIDERS: ATTEND Physician Assistant
DX: I50.31 Acute diastolic (congestive) heart failure (principal)

== ENCOUNTER → 2023-02-18 | Outpatient (CLI) | payer OTHER ==
[~2023-02-18] MED LIST changes: +GASTROGRAFIN SOLUTION 30ML As Ordered ONE; +ISOVUE-370 76% 100ML VIAL As Ordered ONE
== END ==
LOC: M RAD 11:53
PROVIDERS: ATTEND Physician Assistant Medical
DX: R60.0 Localized edema (principal)

== ENCOUNTER → 2023-02-18 | Outpatient (CLI) | payer OTHER | LOC: M RAD 11:57 | PROVIDERS: ATTEND Nurse Practitioner | DX: D64.9 Anemia, unspecified (principal); Z85.118 Personal history of other malignant neoplasm of bronchus and lung; R91.1 Solitary pulmonary nodule; K57.30 Diverticulosis of large intestine without perforation or abscess without bleeding; R60.0 Localized edema; Z98.0 Intestinal bypass and anastomosis status | CPT/HCPCS: 74177; 76536; Q9963; Q9967 ==

== ENCOUNTER → 2024-03-02 | Outpatient (CLI) | payer OTHER, MEDICAID ==
[~2024-03-02] MED LIST changes: -CYCL5TAB PO; +CYCL5TAB4 PO; +FURO20TA2; -GASTROGRAFIN SOLUTION 30ML As Ordered ONE; -ISOVUE-370 76% 100ML VIAL As Ordered ONE; +OPTI0.5D2 OP; -OXYB5TAB11 PO; +OXYB5TAB14 PO; +SLOWTAB2
== END ==
LOC: M WHC 09:37
PROVIDERS: ATTEND Family Medicine
DX: Z12.31 Encounter for screening mammogram for malignant neoplasm of breast (principal); R92.323 Mammographic fibroglandular density, bilateral breasts

== ENCOUNTER → 2024-03-09 | Outpatient (CLI) | payer OTHER, MEDICAID ==
[~2024-03-09] MED LIST changes: +LIDOCAINE 1% MDV 20ML VIAL As Ordered ONE
[2024-03-09 12:20] VITALS: TEMP 98.8
[2024-03-09 13:30] VITALS: BP 137/88; O2SAT 99
[2024-03-09 14:04] LABS: BASO % 0.1 % (0.0-1.0); EOS % 0.2 % (0.0-3.0); HEMATOCRIT 34.7 % (36.0-47.0); HEMOGLOBIN 11.9 g/dl (12.0-15.5); LYMPH # 1.4 10^3/uL (1.5-5.0); LYMPH % 10.9 % (24.0-44.0); MEAN CORPUSCULAR HEMOGLOBIN 32.5 pg (27.0-33.0); MEAN CORPUSCULAR HGB CONC 34.3 g/dl (32.0-36.5); MEAN CORPUSCULAR VOLUME 94.8 fl (80.0-96.0); MONO # 0.7 10^3/uL (0.0-0.8); MONO % 5.9 % (2.0-8.0); NEUTROPHILS # 10.2 10^3/uL (1.5-8.5); NEUTROPHILS % 81.9 % (36.0-66.0); PLATELET COUNT, AUTOMATED 169 10^3/uL (150-450); RED BLOOD COUNT 3.66 10^6/uL (4.00-5.40); WHITE BLOOD COUNT 12.4 10^3/uL (4.0-10.0)
== END ==
LOC: M IRPRO 12:03
PROVIDERS: ATTEND Internal Medicine Medical Oncology
DX: C18.9 Malignant neoplasm of colon, unspecified (principal)

== ENCOUNTER → 2024-06-02 | Outpatient (CLI) | payer OTHER, MEDICAID ==
[~2024-06-02] MED LIST changes: -LIDOCAINE 1% MDV 20ML VIAL As Ordered ONE
== END ==
LOC: M WHC 07:35
PROVIDERS: ATTEND Family Medicine
DX: R14.0 Abdominal distension (gaseous) (principal); K76.0 Fatty (change of) liver, not elsewhere classified

== ENCOUNTER → 2024-07-29 | Outpatient (CLI) | payer OTHER, MEDICAID ==
[~2024-07-29] MED LIST changes: +FURO40TA2 PO; +SPIR-10; +SPIR-10 PO
== END ==
LOC: M RAD 15:12
PROVIDERS: ATTEND Physician Assistant Medical
DX: M79.604 Pain in right leg (principal); M79.605 Pain in left leg

== ENCOUNTER → 2024-12-28 | Outpatient (REF) | payer MEDICARE ==
[~2024-12-28] MED LIST changes: +DOCU8.6T PO; +GLUCTAB7 PO; -LEVO112T2; +LEVO75TAB PO; +MAGN400T33 PO; +MED REC COMMENT; +METO1TAB87 PO; +PANT40TA29 PO; +POTA-298 PO; +SIME80CH6 PO; +SLOW1TAB3; -SLOWTAB2
== END ==
LOC: M LAB REF 14:41
PROVIDERS: ATTEND Family Medicine
DX: R79.89 Other specified abnormal findings of blood chemistry (principal)

== ENCOUNTER 2024-12-29 01:19 | Inpatient (IN) | payer MEDICARE, MEDICAID ==
[2024-12-30] VITALS (10 sets, daily range): BP systolic 78–108; BP diastolic 38–56; TEMP 97–98.1; O2SAT 95–98
[2024-12-30] MEDS ORDERED: MOM 30 ML SUSPENSION UDC PO PRN (03:10)
[2024-12-30] MEDS ORDERED: MAALOX 30 ML SUSP *UDC PO PRN (03:10)
[2024-12-30] MEDS: NS (Normal Saline) 0.9% 1,000 ML IV ONE ×4 (03:15→16:04)
[2024-12-30 04:26] LABS: PLATELET COUNT, AUTOMATED 188 10^3/uL (150-450)
[2024-12-30 04:38] LABS: INR 2.3
[2024-12-30 05:10] LABS: ALT/SGPT 13.0 U/L (7.0-40); AST/SGOT 26.0 U/L (<34); CALCIUM LEVEL 12.1 MG/DL (8.3-10.6); CARBON DIOXIDE LEVEL 24.0 MMOL/L (20-31); CHLORIDE LEVEL 101.0 MMOL/L (98-107); CREATININE FOR GFR 2.3 MG/DL (0.55-1.30); GLOMERULAR FILTRATION RATE 20.3 (>32); MAGNESIUM LEVEL 2.2 MG/DL (1.8-2.4); PHOSPHORUS LEVEL 3.4 MG/DL (2.4-5.1); POTASSIUM SERUM 2.8 MMOL/L (3.5-5.1); PTH INTACT 11.1 PG/ML (18.5-88.0); SODIUM LEVEL 133.0 MMOL/L (136-145)
[2024-12-30] MEDS: POTASSIUM CHLORIDE 10MEQ SR TABLET PO ONE (05:49)
[2024-12-30] MEDS: NS (Normal Saline) 0.9% 1,000 ML IV SCH (05:50)
[2024-12-30 06:23] LABS: KETONE, URINE AUTO RFX NEGATIVE (NEGATIVE); MUCUS, URINE RFX SMALL (NEGATIVE); NITRITE, URINE AUTO RFX NEGATIVE (NEGATIVE); RBC, URINE AUTO RFX 4 /HPF (0-3); SQUAM EPITHELIAL CELL UR AURFX 3 /HPF (0-6); WBC, URINE AUTO RFX 3 /HPF (0-3)
[2024-12-30 06:34] LABS: POTASSIUM RANDOM URINE 35.0 MMOL/L; SODIUM,RANDOM URINE 50.0 MMOL/L
[2024-12-30 06:43] LABS: LEUKOCYTE ESTERASE UR AUTO RFX TRACE (NEGATIVE)
[2024-12-30] MEDS: POTASSIUM CHLORIDE 10% LIQ 20MEQ/15ML UDC PO ONE (07:41)
[2024-12-30] MEDS: DOCUSATE SODIUM 100 MG CAPSULE PO SCH (08:49)
[2024-12-30] MEDS: KCL 10MEQ/100ML SWI (KRUN) 10 MEQ in IV 1 EA IV ONE (08:50)
[2024-12-30] MEDS: KCL 20MEQ in NS 1000ML 1,000 ML IV SCH (10:23)
[2024-12-30] MEDS ORDERED: PANT40TA29 PO (12:34)
[2024-12-30] MEDS ORDERED: MAGN400T2 PO (12:34)
[2024-12-30] MEDS ORDERED: SIMV20TA22 PO (12:34)
[2024-12-30] MEDS ORDERED: POTA-298 PO (12:34)
[2024-12-30] MEDS ORDERED: HOME MED LIST COMPLETE! XX SCH (12:40)
[2024-12-30] MEDS: APIXABAN 2.5 MG TAB PO SCH (14:50)
[2024-12-30] MEDS: cefTRIAXone SOD 1 GM in DEXTROSE 5% (D5W) ADV/MINI-BAG 50 ML IV SCH (17:22)
[2024-12-30] MEDS: SENNA 8.6 MG TAB PO SCH (20:39)
[2024-12-30] MEDS: SIMVASTATIN 20 MG TAB PO SCH (20:40)
[2024-12-30] MEDS: PANTOPRAZOLE 40MG TAB PO SCH (20:40)
[2024-12-30] MEDS: MAGNESIUM OXIDE 400 MG TAB PO SCH (20:40)
[2024-12-30 21:23] LABS: CALCIUM LEVEL 10.3 MG/DL (8.3-10.6); CARBON DIOXIDE LEVEL 20.0 MMOL/L (20-31); CHLORIDE LEVEL 112.0 MMOL/L (98-107); CREATININE FOR GFR 1.75 MG/DL (0.55-1.30); GLOMERULAR FILTRATION RATE 28.2 (>32); MAGNESIUM LEVEL 1.7 MG/DL (1.8-2.4); PHOSPHORUS LEVEL 2.3 MG/DL (2.4-5.1); POTASSIUM SERUM 4.1 MMOL/L (3.5-5.1); SODIUM LEVEL 138.0 MMOL/L (136-145)
[2024-12-30] MEDS: MAG SULF 1GM/100ML (MAG RUN) 1 GM in IV 1 EA IV SCH (22:27)
[2024-12-31] VITALS (7 sets, daily range): BP systolic 99–116; BP diastolic 50–58; TEMP 97.9–98.7; O2SAT 92–99
[2024-12-31] MEDS: NS (Normal Saline) 0.9% 1,000 ML IV ONE ×2 (00:23→01:55)
[2024-12-31] MEDS: SODIUM PHOSPHATE INJ 20 MMOL in D5W 250 ML IV ONE (01:23)
[2024-12-31] MEDS: LEVOTHYROXINE 112 MCG TABLET (0.112 MG) PO SCH (05:29)
[2024-12-31 05:54] LABS: PLATELET COUNT, AUTOMATED 124 10^3/uL (150-450)
[2024-12-31 06:14] LABS: ALT/SGPT 12.0 U/L (7.0-40); AST/SGOT 28.0 U/L (<34); CALCIUM LEVEL 10.2 MG/DL (8.3-10.6); CARBON DIOXIDE LEVEL 20.0 MMOL/L (20-31); CHLORIDE LEVEL 113.0 MMOL/L (98-107); CREATININE FOR GFR 1.57 MG/DL (0.55-1.30); GLOMERULAR FILTRATION RATE 32.1 (>32); POTASSIUM SERUM 3.9 MMOL/L (3.5-5.1); SODIUM LEVEL 141.0 MMOL/L (136-145)
[2024-12-31 07:22] LABS: INR 1.86
[2024-12-31] MEDS: rOPINIRole 0.25 MG TAB PO SCH (08:30)
[2024-12-31 11:56] LABS: PLATELET COUNT, AUTOMATED 126 10^3/uL (150-450)
[2024-12-31] MEDS: CEFPODOXIME PROXETIL 200 MG TABLET PO SCH (17:55)
[2025-01-01] VITALS (8 sets, daily range): BP systolic 82–140; BP diastolic 42–69; TEMP 97–99; O2SAT 91–98
[2025-01-01 05:56] LABS: PLATELET COUNT, AUTOMATED 131 10^3/uL (150-450)
[2025-01-01 06:09] LABS: INR 1.78
[2025-01-01 06:34] LABS: ALT/SGPT 15.0 U/L (7.0-40); AST/SGOT 31.0 U/L (<34); CALCIUM LEVEL 9.7 MG/DL (8.3-10.6); CARBON DIOXIDE LEVEL 19.0 MMOL/L (20-31); CHLORIDE LEVEL 115.0 MMOL/L (98-107); CREATININE FOR GFR 1.51 MG/DL (0.55-1.30); GLOMERULAR FILTRATION RATE 33.7 (>32); POTASSIUM SERUM 4.4 MMOL/L (3.5-5.1); SODIUM LEVEL 140.0 MMOL/L (136-145)
[2025-01-01] MEDS ORDERED: ONDANSETRON 4MG 2ML VIAL IV PRN (08:05)
[2025-01-01] MEDS: ONDANSETRON 4MG 2ML VIAL IV ONE (08:13)
[2025-01-01] MEDS: METOPROLOL TART 25 MG TABLET PO SCH (08:22)
[2025-01-01] MEDS: LEVALBUTEROL 1.25 MG 0.5ML CONCENTRATE NEB NEB ONE (09:23)
[2025-01-01] MEDS: FUROSEMIDE 100 MG/10 ML VIAL IV ONE (10:46)
[2025-01-01] MEDS: POTASSIUM CHLORIDE 10MEQ SR TABLET PO SCH (16:02)
[2025-01-01] MEDS: FERROUS SULFATE 325 MG TAB PO SCH (16:02)
[2025-01-01] MEDS: MIRALAX *UNIT DOSE* 17 GM PACKET PO SCH (20:30)
[2025-01-02] VITALS (7 sets, daily range): BP systolic 103–151; BP diastolic 50–65; TEMP 97.5–99; O2SAT 93–95
[2025-01-02 05:52] LABS: PLATELET COUNT, AUTOMATED 122 10^3/uL (150-450)
[2025-01-02 06:08] LABS: INR 1.79
[2025-01-02 06:21] LABS: IRON (FE) 32.0 UG/DL (50-170); PERCENT SATURATION 15.6 % (13.2-45.0)
[2025-01-02 06:25] LABS: ALT/SGPT 11.0 U/L (7.0-40); AST/SGOT 27.0 U/L (<34); CALCIUM LEVEL 9.9 MG/DL (8.3-10.6); CARBON DIOXIDE LEVEL 23.0 MMOL/L (20-31); CHLORIDE LEVEL 108.0 MMOL/L (98-107); CREATININE FOR GFR 1.73 MG/DL (0.55-1.30); GLOMERULAR FILTRATION RATE 28.6 (>32); POTASSIUM SERUM 4.1 MMOL/L (3.5-5.1); SODIUM LEVEL 139.0 MMOL/L (136-145)
[2025-01-02] MEDS: FUROSEMIDE 40 MG/4 ML VIAL IV ONE (14:03)
[2025-01-02] MEDS: FERRIC CARBOXYMALTOSE INJ 750 MG, VIAL MATE ADAPTER 1 EACH in NS 100 ML IV ONE (15:32)
[2025-01-03 04:20] VITALS: BP 101/58; TEMP 97.5; O2SAT 91
[2025-01-03 05:50] LABS: PLATELET COUNT, AUTOMATED 152 10^3/uL (150-450)
[2025-01-03 06:02] LABS: INR 1.6
[2025-01-03 06:23] LABS: ALT/SGPT 10.0 U/L (7.0-40); AST/SGOT 24.0 U/L (<34); CALCIUM LEVEL 9.9 MG/DL (8.3-10.6); CARBON DIOXIDE LEVEL 27.0 MMOL/L (20-31); CHLORIDE LEVEL 105.0 MMOL/L (98-107); CREATININE FOR GFR 1.77 MG/DL (0.55-1.30); GLOMERULAR FILTRATION RATE 27.8 (>32); POTASSIUM SERUM 3.5 MMOL/L (3.5-5.1); SODIUM LEVEL 132.0 MMOL/L (136-145)
[2025-01-03 07:58] VITALS: BP 115/59; TEMP 97.8; O2SAT 93
[2025-01-03 12:19] VITALS: BP 112/57; TEMP 97.6; O2SAT 93
[2025-01-03] MEDS: METOPROLOL TART 12.5 MG PER 1/2 TAB PO SCH (14:21)
[2025-01-03 16:20] VITALS: BP 122/65; TEMP 97.5; O2SAT 94
[2025-01-03 19:31] VITALS: BP 105/50; TEMP 97.1; O2SAT 93
[2025-01-03 23:46] VITALS: BP 101/51; TEMP 97.4; O2SAT 95
[2025-01-04 03:05] VITALS: BP 109/55; TEMP 96.9; O2SAT 93
[2025-01-04 06:54] LABS: PLATELET COUNT, AUTOMATED 162 10^3/uL (150-450)
[2025-01-04 07:04] LABS: INR 1.62
[2025-01-04 07:15] LABS: ALT/SGPT 11.0 U/L (7.0-40); AST/SGOT 24.0 U/L (<34); CALCIUM LEVEL 9.6 MG/DL (8.3-10.6); CARBON DIOXIDE LEVEL 27.0 MMOL/L (20-31); CHLORIDE LEVEL 106.0 MMOL/L (98-107); CREATININE FOR GFR 1.69 MG/DL (0.55-1.30); GLOMERULAR FILTRATION RATE 29.4 (>32); POTASSIUM SERUM 4.2 MMOL/L (3.5-5.1); SODIUM LEVEL 141.0 MMOL/L (136-145)
[2025-01-04 07:40] VITALS: BP 109/52; TEMP 97.5; O2SAT 95
[2025-01-04 10:40] VITALS: BP 101/58
[2025-01-04 11:03] VITALS: BP 101/58
[2025-01-04] MEDS ORDERED: MIDO5TA PO (11:18)
== END 2025-01-04 13:17 | disposition home health service (06) | DRG 682 ==
LOC: M PCU 12-30 01:36
PROVIDERS: ADMIT Student in an Organized Health Care Education/Training Program; ATTEND Internal Medicine
DX: N17.9 Acute kidney failure, unspecified (principal); I50.33 Acute on chronic diastolic (congestive) heart failure; J96.01 Acute respiratory failure with hypoxia; I13.0 Hypertensive heart and chronic kidney disease with heart failure and stage 1 through stage 4 chronic kidney disease, or unspecified chronic kidney disease; E87.1 Hypo-osmolality and hyponatremia; E03.9 Hypothyroidism, unspecified; E87.6 Hypokalemia; E83.52 Hypercalcemia; G20.A1 Parkinson's disease without dyskinesia, without mention of fluctuations; E78.5 Hyperlipidemia, unspecified; N18.30 Chronic kidney disease, stage 3 unspecified; I48.91 Unspecified atrial fibrillation; D63.1 Anemia in chronic kidney disease; Z85.038 Personal history of other malignant neoplasm of large intestine; Z95.2 Presence of prosthetic heart valve; Z85.828 Personal history of other malignant neoplasm of skin; Z98.49 Cataract extraction status, unspecified eye; Z79.899 Other long term (current) drug therapy; Z79.890 Hormone replacement therapy; K59.00 Constipation, unspecified

== ENCOUNTER 2025-01-10 12:29 | Inpatient (IN) | payer MEDICARE, MEDICAID ==
[~2025-01-10] VITALS: Ht 162.6 cm; Wt 70.0 kg
[~2025-01-10 12:29] MED LIST changes: +MIDO5TA PO
[2025-01-10 12:57] LABS: BASO # 0.0 10^3/uL (0.0-0.2); BASO % 0.2 % (0.0-1.0); EOS # 0.0 10^3/uL (0.0-0.5); EOS % 0.1 % (0.0-3.0); LYMPH # 0.8 10^3/uL (1.5-5.0); LYMPH % 6.2 % (24.0-44.0); MONO # 1.0 10^3/uL (0.0-0.8); MONO % 7.8 % (2.0-8.0); NEUTROPHILS # 10.5 10^3/uL (1.5-8.5); NEUTROPHILS % 85.2 % (36.0-66.0); PLATELET COUNT, AUTOMATED 174 10^3/uL (150-450)
[2025-01-10 13:34] LABS: SALICYLATE LEVEL < 3.0 MG/DL (<30)
[2025-01-10 13:35] LABS: ALT/SGPT 15 U/L (7.0-40); AST/SGOT 31 U/L (<34); CALCIUM LEVEL 10.1 MG/DL (8.3-10.6); CARBON DIOXIDE LEVEL 24 MMOL/L (20-31); CHLORIDE LEVEL 106 MMOL/L (98-107); CREATININE FOR GFR 1.32 MG/DL (0.55-1.30); GLOMERULAR FILTRATION RATE 39.6 (>32); POTASSIUM SERUM 3.3 MMOL/L (3.5-5.1); SODIUM LEVEL 141 MMOL/L (136-145)
[2025-01-10 13:38] LABS: ETHYL ALCOHOL (ETHANOL) < 0.003 % (0.000-0.010)
[2025-01-10] MEDS ORDERED: MIDO5TA PO (13:48)
[2025-01-10] MEDS ORDERED: HOME MED LIST COMPLETE! XX SCH (13:50)
[2025-01-10 14:03] LABS: KETONE, URINE AUTO RFX TRACE mg/dL (NEGATIVE); LEUKOCYTE ESTERASE UR AUTO RFX NEGATIVE (NEGATIVE); MUCUS, URINE RFX SMALL (NEGATIVE); NITRITE, URINE AUTO RFX NEGATIVE (NEGATIVE); RBC, URINE AUTO RFX 0 /HPF (0-3); SQUAM EPITHELIAL CELL UR AURFX 0 /HPF (0-6); WAXY CAST, URINE AUTO RFX 1 /LPF; WBC, URINE AUTO RFX 3 /HPF (0-3)
[2025-01-10] MEDS: ACETAMINOPHEN 325 MG TAB PO ONE (14:41)
[2025-01-10 15:00] LABS: CPK CREATINE PHOSPHOKINASE 34 U/L (34-145)
[2025-01-10] MEDS ORDERED: MIRALAX *UNIT DOSE* 17 GM PACKET PO SCH (21:00)
[2025-01-10] MEDS: LR 1,000 ML IV SCH (21:17)
[2025-01-10] MEDS: SIMVASTATIN 20 MG TAB PO SCH (21:19)
[2025-01-10] MEDS: PANTOPRAZOLE 40MG TAB PO SCH (21:19)
[2025-01-10] MEDS: POTASSIUM CHLORIDE 10MEQ SR TABLET PO ONE (21:19)
[2025-01-10] MEDS: AZITHROMYCIN 250 MG TABLET PO SCH (21:19)
[2025-01-10] MEDS: BISACODYL 10 MG SUPP PR ONE (21:20)
[2025-01-10] MEDS: MIRALAX *UNIT DOSE* 17 GM PACKET PO SCH (22:28)
[2025-01-11] MEDS: ACETAMINOPHEN 325 MG TAB PO PRN (07:37)
[2025-01-11] MEDS: LEVOTHYROXINE 112 MCG TABLET (0.112 MG) PO SCH (07:43)
[2025-01-11] MEDS ORDERED: PIPERACILLIN/TAZOBACTAM SOD 3.375 GM in DEXTROSE 5% (D5W) ADV/MINI-BAG 50 ML IV SCH (08:25)
[2025-01-11] MEDS: MIDODRINE 5 MG TAB PO SCH (08:31)
[2025-01-11] MEDS: NS (Normal Saline) 0.9% 1,000 ML IV ONE (08:37)
[2025-01-11] MEDS ORDERED: METOPROLOL TART 25 MG TABLET PO SCH (09:00)
[2025-01-11] MEDS: DOCUSATE SODIUM 100 MG CAPSULE PO SCH (09:21)
[2025-01-11] MEDS: MULTIVITAMINS/MINERALS THERAP 1 TAB PO SCH (09:22)
[2025-01-11] MEDS: FERROUS SULFATE 325 MG TAB PO SCH (09:22)
[2025-01-11 10:04] LABS: PLATELET COUNT, AUTOMATED 137 10^3/uL (150-450)
[2025-01-11] MEDS: PIPERACILLIN/TAZOBACTAM SOD 2.25 GM in DEXTROSE 5% (D5W) ADV/MINI-BAG 50 ML IV SCH (10:29)
[2025-01-11] MEDS: rOPINIRole 0.25 MG TAB PO SCH (10:29)
[2025-01-11 10:39] LABS: ALT/SGPT 11.0 U/L (7.0-40); AST/SGOT 22.0 U/L (<34); CALCIUM LEVEL 8.6 MG/DL (8.3-10.6); CARBON DIOXIDE LEVEL 19.0 MMOL/L (20-31); CHLORIDE LEVEL 108.0 MMOL/L (98-107); CREATININE FOR GFR 1.27 MG/DL (0.55-1.30); GLOMERULAR FILTRATION RATE 41.4 (>32); MAGNESIUM LEVEL 1.4 MG/DL (1.8-2.4); POTASSIUM SERUM 3.3 MMOL/L (3.5-5.1); SODIUM LEVEL 138.0 MMOL/L (136-145)
[2025-01-11 16:15] VITALS: BP 102/43; TEMP 98.4; O2SAT 95
[2025-01-11] MEDS: POTASSIUM CHLORIDE 10MEQ SR TABLET PO ONE (18:15)
[2025-01-11] MEDS: MAG SULF 1GM/100ML (MAG RUN) 1 GM in IV 1 EA IV SCH (19:48)
[2025-01-11 20:00] VITALS: BP 93/42; TEMP 96.8; O2SAT 93
[2025-01-11] MEDS: MAGNESIUM OXIDE 400 MG TAB PO SCH (20:53)
[2025-01-11] MEDS ORDERED: FIDAXOMICIN 200 MG TAB PO SCH (21:00)
[2025-01-12] VITALS: BP 90/52; TEMP 98.9; O2SAT 94
[2025-01-12 04:00] VITALS: BP 99/50; TEMP 98.7; O2SAT 96
[2025-01-12 06:18] LABS: PLATELET COUNT, AUTOMATED 120 10^3/uL (150-450)
[2025-01-12 06:49] LABS: ALT/SGPT 11.0 U/L (7.0-40); AST/SGOT 22.0 U/L (<34); CALCIUM LEVEL 8.4 MG/DL (8.3-10.6); CARBON DIOXIDE LEVEL 23.0 MMOL/L (20-31); CHLORIDE LEVEL 110.0 MMOL/L (98-107); CREATININE FOR GFR 1.24 MG/DL (0.55-1.30); GLOMERULAR FILTRATION RATE 42.7 (>32); POTASSIUM SERUM 3.5 MMOL/L (3.5-5.1); SODIUM LEVEL 141.0 MMOL/L (136-145)
[2025-01-12 08:37] VITALS: BP 113/63; TEMP 98.1; O2SAT 96
[2025-01-12] MEDS: MIDODRINE 5 MG TAB PO SCH (09:40)
[2025-01-12] MEDS: NS (Normal Saline) 0.9% 1,000 ML IV ONE (09:41)
[2025-01-12 12:00] VITALS: BP 124/68; TEMP 97.2; O2SAT 99
[2025-01-12 20:00] VITALS: BP 134/67; TEMP 99; O2SAT 97
[2025-01-13] VITALS (14 sets, daily range): BP systolic 103–160; BP diastolic 48–82; TEMP 97.3–98.8; O2SAT 18–99
[2025-01-13 07:14] LABS: PLATELET COUNT, AUTOMATED 137 10^3/uL (150-450)
[2025-01-13 07:44] LABS: ALT/SGPT 16.0 U/L (7.0-40); AST/SGOT 28.0 U/L (<34); CALCIUM LEVEL 8.3 MG/DL (8.3-10.6); CARBON DIOXIDE LEVEL 23.0 MMOL/L (20-31); CHLORIDE LEVEL 110.0 MMOL/L (98-107); CREATININE FOR GFR 1.15 MG/DL (0.55-1.30); GLOMERULAR FILTRATION RATE 46.7 (>32); POTASSIUM SERUM 3.4 MMOL/L (3.5-5.1); SODIUM LEVEL 142.0 MMOL/L (136-145)
[2025-01-13] MEDS: POTASSIUM CHLORIDE 10MEQ SR TABLET PO ONE (09:27)
[2025-01-13] MEDS: APIXABAN 5 MG TAB PO SCH (09:27)
[2025-01-14] VITALS (7 sets, daily range): BP systolic 125–163; BP diastolic 65–78; TEMP 97.3–99.1; O2SAT 97–99
[2025-01-14 06:40] LABS: PLATELET COUNT, AUTOMATED 135 10^3/uL (150-450)
[2025-01-14 07:02] LABS: ALT/SGPT 20.0 U/L (7.0-40); AST/SGOT 37.0 U/L (<34); CALCIUM LEVEL 8.6 MG/DL (8.3-10.6); CARBON DIOXIDE LEVEL 21.0 MMOL/L (20-31); CHLORIDE LEVEL 111.0 MMOL/L (98-107); CREATININE FOR GFR 1.07 MG/DL (0.55-1.30); GLOMERULAR FILTRATION RATE 50.9 (>32); POTASSIUM SERUM 3.7 MMOL/L (3.5-5.1); SODIUM LEVEL 141.0 MMOL/L (136-145)
[2025-01-14] MEDS ORDERED: SENNA 8.6 MG TAB PO PRN (19:00)
[2025-01-14] MEDS: DOCUSATE SODIUM 100 MG CAPSULE PO SCH (20:38)
[2025-01-15 00:25] VITALS: BP 120/68; TEMP 98.1; O2SAT 97
[2025-01-15 04:03] VITALS: BP 131/67; TEMP 98.6; O2SAT 96
[2025-01-15 06:23] LABS: PLATELET COUNT, AUTOMATED 149 10^3/uL (150-450)
[2025-01-15 06:44] LABS: ALT/SGPT 18.0 U/L (7.0-40); AST/SGOT 31.0 U/L (<34); CALCIUM LEVEL 8.7 MG/DL (8.3-10.6); CARBON DIOXIDE LEVEL 22.0 MMOL/L (20-31); CHLORIDE LEVEL 110.0 MMOL/L (98-107); CREATININE FOR GFR 1.06 MG/DL (0.55-1.30); GLOMERULAR FILTRATION RATE 51.5 (>32); POTASSIUM SERUM 3.7 MMOL/L (3.5-5.1); SODIUM LEVEL 140.0 MMOL/L (136-145)
[2025-01-15 08:00] VITALS: BP 135/75; TEMP 98.6; O2SAT 95
[2025-01-15] MEDS ORDERED: MIDODRINE 5 MG TAB PO SCH (08:00)
[2025-01-15] MEDS ORDERED: SENN18TA PO (08:20)
[2025-01-15] MEDS ORDERED: COLA100C5 PO (08:20)
[2025-01-15] MEDS ORDERED: MIDO5TA PO (08:20)
[2025-01-15 08:59] VITALS: BP 131/79
[2025-01-15] MEDS: MIDODRINE 5 MG TAB PO SCH (08:59)
[2025-01-15] MEDS ORDERED: PILL CUTTER 1 EACH XX ONE (09:00)
== END 2025-01-15 10:42 | disposition home health service (06) | DRG 391 ==
LOC: M ED 12:29 → M ED INP 20:22 → M MSPAV 01-11 16:04
PROVIDERS: ADMIT Student in an Organized Health Care Education/Training Program; ATTEND Internal Medicine
PROC: 30233N1 Transfusion of Nonautologous Red Blood Cells into Peripheral Vein, Percutaneous Approach (ICD-10-PCS; principal; 2025-01-13)
DX: K52.9 Noninfective gastroenteritis and colitis, unspecified (principal); G93.41 Metabolic encephalopathy; I50.32 Chronic diastolic (congestive) heart failure; I13.0 Hypertensive heart and chronic kidney disease with heart failure and stage 1 through stage 4 chronic kidney disease, or unspecified chronic kidney disease; N18.30 Chronic kidney disease, stage 3 unspecified; E03.9 Hypothyroidism, unspecified; Z95.2 Presence of prosthetic heart valve; E78.5 Hyperlipidemia, unspecified; R29.6 Repeated falls; K59.00 Constipation, unspecified; D63.8 Anemia in other chronic diseases classified elsewhere; G20.A1 Parkinson's disease without dyskinesia, without mention of fluctuations; I25.10 Atherosclerotic heart disease of native coronary artery without angina pectoris; I48.91 Unspecified atrial fibrillation; I95.89 Other hypotension; E86.9 Volume depletion, unspecified; E83.42 Hypomagnesemia; E87.6 Hypokalemia; I95.1 Orthostatic hypotension; Z85.038 Personal history of other malignant neoplasm of large intestine; Z85.828 Personal history of other malignant neoplasm of skin; Z79.899 Other long term (current) drug therapy

== ENCOUNTER → 2025-02-07 | Outpatient (REF) | payer MEDICARE, MEDICAID ==
[~2025-02-07] MED LIST changes: +SENN18TA PO
== END ==
LOC: M LAB REF 17:19
PROVIDERS: ATTEND Family Medicine
DX: I48.91 Unspecified atrial fibrillation (principal); Z79.899 Other long term (current) drug therapy; Z85.038 Personal history of other malignant neoplasm of large intestine; R06.02 Shortness of breath